=== PATIENT | male | born 1955 | race Caucasian/White ===

== ENCOUNTER 2016-05-28 04:37 | Inpatient (IN) | payer MEDICARE ==
[~2016-05-28] VITALS: Ht 157.5 cm; Wt 60.6 kg
[2016-05-28] MEDS ORDERED: PROVENTIL HFA 61 INH INH (05:29)
[2016-05-28] MEDS ORDERED: TENORMIN 50 MG50 MG PO ×2 (05:30→05:31)
[2016-05-28] MEDS ORDERED: NORVASC 5 MG TAB5 MG PO (05:30)
[2016-05-28] MEDS ORDERED: VALIUM 5 MG TAB5 MG PO (05:33)
[2016-05-28] MEDS ORDERED: MONODOX100 MG PO (05:33)
[2016-05-28] MEDS ORDERED: NEURONTIN 400400 MG PO (05:34)
[2016-05-28] MEDS ORDERED: IPRAT-ALBUT 0.5-3 ML INH (05:34)
[2016-05-28] MEDS ORDERED: PREDNISONE 20 M20 MG PO (05:35)
[2016-05-28] MEDS ORDERED: SPIRIVA18 MCG INH (05:36)
[2016-05-28 06:27] LABS: HEMOGLOBIN 8.9 gm/dl (14.0-17.5); RED BLOOD COUNT 2.91 M/UL (4.20-5.50); WHITE BLOOD COUNT 15.8 K/UL (4.5-11.0)
[2016-05-28 07:09] LABS: BUN/CREATININE RATIO 18 (0-10)
[2016-05-29 03:57] LABS: RED BLOOD COUNT 2.64 M/UL (4.20-5.50); WHITE BLOOD COUNT 17.5 K/UL (4.5-11.0)
[2016-05-29 04:18] LABS: BUN/CREATININE RATIO 22 (0-10)
== END 2016-05-29 12:45 | disposition left against medical advice (07) | DRG 291 ==
LOC: CCU 05:07
PROVIDERS: Family Medicine; ADMIT Hospitalist
DX: I11.0 Hypertensive heart disease with heart failure (principal); A41.02 Sepsis due to Methicillin resistant Staphylococcus aureus; J96.21 Acute and chronic respiratory failure with hypoxia; J96.22 Acute and chronic respiratory failure with hypercapnia; F13.20 Sedative, hypnotic or anxiolytic dependence, uncomplicated; I82.431 Acute embolism and thrombosis of right popliteal vein; I82.441 Acute embolism and thrombosis of right tibial vein; I50.33 Acute on chronic diastolic (congestive) heart failure; J44.9 Chronic obstructive pulmonary disease, unspecified; R60.9 Edema, unspecified; Z87.01 Personal history of pneumonia (recurrent); Z88.5 Allergy status to narcotic agent; Z88.0 Allergy status to penicillin; G89.4 Chronic pain syndrome; F41.9 Anxiety disorder, unspecified; Z86.718 Personal history of other venous thrombosis and embolism; Z85.831 Personal history of malignant neoplasm of soft tissue; Z92.3 Personal history of irradiation; I25.10 Atherosclerotic heart disease of native coronary artery without angina pectoris; D72.829 Elevated white blood cell count, unspecified
CPT/HCPCS: ECHO; 36415; 36600; 71010; 80048; 80053; 80307; 82550; 82553; 82803; 83605; 83880; 84484; 85025; 85027; 87040; 87081; 93005; 93306; 93925; 93970; 94640; 94660; 94664; J1940